=== PATIENT | female | born 1970 | race Hispanic/Latino ===

== ENCOUNTER 2019-01-23 11:14 | Emergency (ER) | payer MEDICARE ==
[2019-01-23] MEDS ORDERED: GEODON IM ONE ×2 (11:33→11:55)
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
[2019-01-23 12:21] LABS: Basophils # (Auto) 0.1 K/mm3 (0.0-0.1); Basophils % (Auto) 0.5 % (0.0-1.8); Hematocrit 45.6 % (30.3-42.9); Hemoglobin 15.1 gm/dl (10.1-14.3); Lymphocytes # (Auto) 1.3 K/mm3 (1.2-5.4); Lymphocytes % (Auto) 11.8 % (13.4-35.0); Mean Corpuscular HGB Conc 33 % (30-34); Mean Corpuscular Volume 90 fl (79-97); Monocytes # (Auto) 0.7 K/mm3 (0.0-0.8); Monocytes % (Auto) 6.2 % (0.0-7.3); Platelet Count 225 K/mm3 (140-440); Red Blood Count 5.08 M/mm3 (3.65-5.03); Red Cell Distribution Width 14.7 % (13.2-15.2)
[2019-01-23 12:26] LABS: Alanine Aminotransferase 27 units/L (7-56); Albumin 4.1 g/dL (3.9-5); BUN/Creatinine Ratio 20; Blood Urea Nitrogen 12 mg/dL (7-17); Calcium 9.7 mg/dL (8.4-10.2); Hemolysis Index 63
--- NOTE | 2019-01-23 16:27 | Cat Scan Report ---
PROCEDURE: CT HEAD/BRAIN WO CON TECHNIQUE: Computerized tomography of the head was performed without contrast material. CT DOSE LENGTH PRODUCT: 805.4 mGy-cm. HISTORY: Fall. Altered mental status. COMPARISONS: None currently available. FINDINGS: There is no evidence for acute ischemia. There is no hemorrhage. There is no midline shift. There is no hydrocephalus. There is no mass. Age appropriate rutledge-white matter attenuation is noted. There is no calvarial fracture. The temporal bones demonstrate aerated mastoid air cells. The middle ears appear unremarkable. Paranasal sinuses are unremarkable. Globes are intact. IMPRESSION: * No acute intracranial findings. This document is electronically signed by Alok Al MD., Jan 23 2019 04:25:40 PM ET
[2019-01-23 18:17] LABS: Bacteria,Urine 1+ /HPF (Negative); Bilirubin,Urine NEG (Negative); Blood,Urine NEG (Negative); Mucus,Urine FEW /HPF; Urobilinogen,Urine < 2.0 mg/dL (<2.0)
[2019-01-23 18:19] LABS: Color,Urine Yellow (Yellow)
[2019-01-23 18:25] LABS: Amphetamine Screen,Urine PRESUMPTIVE NEGATIVE; Cocaine Screen,Urine PRESUMPTIVE NEGATIVE; Methadone Screen,Urine PRESUMPTIVE NEGATIVE; Opiate Screen,Urine PRESUMPTIVE NEGATIVE
[2019-01-23 18:48] LABS: Benzodiazepines Screen,Urine PRESUMPTIVE POSITIVE; Cannabinoid Screen,Urine PRESUMPTIVE POSITIVE
[2019-01-24] MEDS ORDERED: GEODON IM ONE (00:14)
[2019-01-24] MEDS ORDERED: GEODON IM PRN (00:29)
[2019-01-24] MEDS ORDERED: XANAX PO ONE (09:53)
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
[2019-01-24] MEDS: MACROBID PO SCH ×2 (13:00→23:55)
[2019-01-24] MEDS ORDERED: XANAX PO PRN (13:17)
[2019-01-24 13:54] VITALS: BP 136/84
[2019-01-24] MEDS ORDERED: celeXA PO SCH (14:00)
[2019-01-24] MEDS ORDERED: BENADRYL PO SCH (22:00)
== END 2019-01-24 20:50 ==
LOC: ED 11:14 → EEVIPCON 11:14 → ED 01-24 20:50
DX: F23 Brief psychotic disorder (principal); F31.9 Bipolar disorder, unspecified; F41.9 Anxiety disorder, unspecified; F12.90 Cannabis use, unspecified, uncomplicated; Z88.6 Allergy status to analgesic agent; Z79.899 Other long term (current) drug therapy
CPT/HCPCS: 36415; 70450; 80053; 80307; 81001; 83735; 84443; 85025; 96372; 99285; G0480; J3486; 80320

== ENCOUNTER 2019-01-27 12:14 | Emergency (ER) | payer MEDICARE ==
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
[2019-01-27 13:30] LABS: Basophils # (Auto) 0.1 K/mm3 (0.0-0.1); Basophils % (Auto) 0.5 % (0.0-1.8); Eosinophils % (Auto) 0.2 % (0.0-4.3); Lymphocytes # (Auto) 2.3 K/mm3 (1.2-5.4); Mean Corpuscular HGB Conc 33 % (30-34); Mean Corpuscular Volume 89 fl (79-97); Monocytes # (Auto) 1.7 K/mm3 (0.0-0.8); Monocytes % (Auto) 11.2 % (0.0-7.3); Platelet Count 225 K/mm3 (140-440); Red Blood Count 5.05 M/mm3 (3.65-5.03); Red Cell Distribution Width 14.2 % (13.2-15.2)
[2019-01-27 13:54] LABS: Alanine Aminotransferase 34 units/L (7-56); Albumin 3.9 g/dL (3.9-5); BUN/Creatinine Ratio 60; Blood Urea Nitrogen 42 mg/dL (7-17); Calcium 10.3 mg/dL (8.4-10.2); Hemolysis Index 9
--- NOTE | 2019-01-27 13:59 | Cat Scan Report ---
CT HEAD WITHOUT CONTRAST: HISTORY: Trauma. TECHNIQUE: Sequential 2.5mm CT images. COMPARISON: 01/23/19. FINDINGS: Cerebral Parenchyma: Within normal limits. Cerebellum: Within normal limits. Brainstem: Within normal limits. Ventricles: Normal. Sella: Normal. Extra-axial spaces: Normal. Basal Cisterns: Normal. Intracranial Hemorrhage: None. Midline Shift: None. Calvarium: Normal. Sinuses: Normal. Mastoid Air Cells: Normal. Visualized Orbits: Normal. IMPRESSION: Cranial CT scan within normal limits.
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
[2019-01-27] MEDS ORDERED: NACL 0.9% 1000 ML 1,000 ML IV ONE ×2 (16:11→16:39)
[2019-01-27 20:35] LABS: Bacteria,Urine 4+ /HPF (Negative); Bilirubin,Urine NEG (Negative); Blood,Urine MOD (Negative); Color,Urine Yellow (Yellow); Mucus,Urine 3+ /HPF; Protein,Urine <15 mg/dL mg/dL (Negative); Urobilinogen,Urine < 2.0 mg/dL (<2.0)
[2019-01-27 20:54] LABS: Amphetamine Screen,Urine PRESUMPTIVE NEGATIVE; Benzodiazepines Screen,Urine PRESUMPTIVE NEGATIVE; Cocaine Screen,Urine PRESUMPTIVE NEGATIVE; Methadone Screen,Urine PRESUMPTIVE NEGATIVE; Opiate Screen,Urine PRESUMPTIVE NEGATIVE
[2019-01-27 21:11] LABS: Cannabinoid Screen,Urine PRESUMPTIVE POSITIVE
[2019-01-28 09:20] VITALS: BP 141/82
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
[2019-01-28] MEDS ORDERED: MACROBID PO ONE (18:46)
[2019-01-28] MEDS ORDERED: MACROBID ONE (18:49)
[2019-01-29] MEDS ORDERED: celeXA PO SCH (10:00)
== END 2019-01-28 19:05 ==
LOC: EEVIPCON 12:14 → ED 12:14
DX: F23 Brief psychotic disorder (principal); N39.0 Urinary tract infection, site not specified; J44.9 Chronic obstructive pulmonary disease, unspecified; F20.9 Schizophrenia, unspecified; W18.30XA Fall on same level, unspecified, initial encounter; Y93.89 Activity, other specified; Y92.89 Other specified places as the place of occurrence of the external cause; Y99.8 Other external cause status
CPT/HCPCS: 36415; 70450; 72125; 80053; 80307; 81001; 82140; 82550; 84443; 84484; 85025; 87086; 93005; 93010; 96360; 99285; J7030; 87076; 87186